=== PATIENT | female | born 1965 | race Caucasian/White ===

== ENCOUNTER 2016-11-06 08:22 | Emergency (ER) | payer OTHER ==
[~2016-11-06] VITALS: Ht 162.6 cm; Wt 79.4 kg
[2016-11-06 09:13] LABS: URINE BILIRUBIN NEGATIVE (Negative); URINE BLOOD NEGATIVE (Negative); URINE COLOR YELLOW; URINE GLUCOSE-RANDOM* NEGATIVE (Negative); URINE KETONES NEGATIVE (Negative); URINE NITRITE NEGATIVE (Negative); URINE PROTEIN (DIPSTICK) NEGATIVE (Negative); URINE SPECIFIC GRAVITY 1.015 (1.003-1.035); URINE UROBILINOGEN 0.2 E.U./dl (0.2-1.0)
[2016-11-06 09:15] LABS: BASOPHILS 0.7 % (0.0-2.0); EOSINOPHILS 2.1 % (0.0-3.0); HEMATOCRIT 29.7 % (37.0-47.0); HEMOGLOBIN 9.2 gm/dL (12.0-15.0); LYMPHOCYTES 33.3 % (24.0-44.0); MCH 22.5 pg (26.0-34.0); MCHC 31.1 g/dL (28.0-37.0); MCV 72.5 fL (80.0-100.0); MONOCYTES 8.8 % (1.0-8.0); PLATELET COUNT 293 thou/uL (150-400); POLYS 55.1 % (36.0-66.0); RBC 4.09 mil/uL (4.20-5.00); RDW 17.8 % (10.5-14.5); WBC 7.2 thou/uL (4.0-11.0)
[2016-11-06 09:16] LABS: MANUAL DIFF NO
[2016-11-06 09:22] LABS: CALCIUM 8.5 mg/dL (8.5-10.1); CREATININE 0.7 mg/dL (0.6-1.0)
[2016-11-06 09:24] VITALS: BP 107/61
[2016-11-06] MEDS ORDERED: IRON325 PO (09:42)
[2016-11-06 10:21] LABS: ANISOCYTOSIS 2+; HYPOCHROMASIA 2+; PLATELET ESTIMATE NORMAL
[2016-11-06 10:22] LABS: MICROCYTES 2+; POLYCHROMASIA 1+
== END 2016-11-06 09:43 | disposition home or self-care (01) ==
LOC: ER 08:22
PROVIDERS: Emergency Medicine
DX: R25.2 Cramp and spasm (principal); D50.9 Iron deficiency anemia, unspecified; F50.89 Other specified eating disorder; F17.210 Nicotine dependence, cigarettes, uncomplicated; F10.99 Alcohol use, unspecified with unspecified alcohol-induced disorder; F12.10 Cannabis abuse, uncomplicated; Z88.0 Allergy status to penicillin

== ENCOUNTER 2019-09-28 00:22 | Emergency (ER) | payer OTHER ==
[~2019-09-28] VITALS: Ht 162.6 cm; Wt 90.7 kg
[~2019-09-28 00:22] MED LIST: IRON325 PO
[2019-09-28] MEDS ORDERED: CIPRO HC OTIC S10 ML OTIC ×2 (01:06→01:36)
[2019-09-28 01:42] VITALS: BP 101/71
== END 2019-09-28 01:42 | disposition home or self-care (01) ==
LOC: ER 00:22
DX: H60.93 Unspecified otitis externa, bilateral (principal); F17.210 Nicotine dependence, cigarettes, uncomplicated; Z88.0 Allergy status to penicillin

== ENCOUNTER 2020-05-12 23:32 | Emergency (ER) | payer OTHER ==
[~2020-05-12] VITALS: Ht 172.7 cm; Wt 81.7 kg
[~2020-05-12 23:32] MED LIST changes: +CIPRO HC OTIC S10 ML OTIC
[2020-05-13 00:46] LABS: BASOPHILS 0.2 % (0.0-2.0)
[2020-05-13 00:48] LABS: URINE BILIRUBIN NEGATIVE (Negative); URINE BLOOD NEGATIVE (Negative); URINE CLARITY CLEAR; URINE COLOR YELLOW; URINE GLUCOSE-RANDOM* NEGATIVE (Negative); URINE KETONES NEGATIVE (Negative); URINE LEUKOCYTES-REFLEX TRACE (Negative); URINE NITRITE-REFLEX NEGATIVE (Negative); URINE PROTEIN (DIPSTICK) NEGATIVE (Negative); URINE SPECIFIC GRAVITY 1.015 (1.005-1.035)
[2020-05-13 00:48] LABS: ABSOLUTE NEUTROPHILS 6.3 thou/uL (1.4-8.2); HEMATOCRIT 32.7 % (37.0-47.0); HEMOGLOBIN 10.7 gm/dL (12.0-15.0); LYMPHOCYTES 24.1 % (24.0-44.0); MCH 31.9 pg (26.0-34.0); MCHC 32.7 g/dL (28.0-37.0); MCV 97.7 fL (80.0-100.0); MONOCYTES 1.5 % (1.0-8.0); PLATELET COUNT 215 thou/uL (150-400); POLYS 74.2 % (36.0-66.0); RBC 3.35 mil/uL (4.20-5.00); RDW 16.3 % (10.5-14.5); WBC 8.5 thou/uL (4.0-11.0)
[2020-05-13 00:50] LABS: CALCIUM 6.9 mg/dL (8.5-10.1); CREATININE 1.7 mg/dL (0.6-1.0)
[2020-05-13 00:51] LABS: POTASSIUM 4.1 mmol/L (3.5-5.1)
[2020-05-13] MEDS ORDERED: PEPCID20 MG PO (00:52)
[2020-05-13] MEDS ORDERED: ELIQUIS5 MG PO (00:52)
[2020-05-13] MEDS ORDERED: OXYCODONE HCL10 MG PO (00:53)
[2020-05-13] MEDS ORDERED: ACETAMINOPHEN650 MG RECTAL (00:53)
[2020-05-13] MEDS ORDERED: HYOSCYAMINE0.125 M1 SUBLING (00:54)
[2020-05-13] MEDS ORDERED: HALOPERIDOL2 MG/1 ML PO (00:54)
[2020-05-13] MEDS ORDERED: BISACODYL10 MG RECTAL (00:54)
[2020-05-13] MEDS ORDERED: FERROUS SULFAT325 MG PO (00:54)
[2020-05-13] MEDS ORDERED: MORPHINE S100 MG/5 M PO (00:55)
[2020-05-13] MEDS ORDERED: LORAZEPAM 0.50.5 MG PO (00:55)
[2020-05-13 00:56] LABS: ALBUMIN 1.3 g/dL (3.4-5.0); TOTAL PROTEIN 4.2 g/dL (6.4-8.2)
[2020-05-13] MEDS ORDERED: SENNA-S TABLET1 EACH PO (00:56)
[2020-05-13] MEDS ORDERED: VITAMIN D325 MC1 PO (00:56)
[2020-05-13] MEDS ORDERED: ONDANSETRON HCL8 MG PO (00:56)
[2020-05-13 01:21] LABS: ANISOCYTOSIS 1+; POLYCHROMASIA 1+
[2020-05-13 02:09] VITALS: BP 157/80
[2020-05-13 02:30] VITALS: BP 99/14
== END 2020-05-13 03:20 ==
LOC: ER 23:32 → EROBS 05-13 01:32 → ER 05-13 03:20
PROVIDERS: Emergency Medicine
DX: C50.919 Malignant neoplasm of unspecified site of unspecified female breast (principal); Z20.828 Contact with and (suspected) exposure to other viral communicable diseases; E87.1 Hypo-osmolality and hyponatremia; K56.690 Other partial intestinal obstruction; R41.0 Disorientation, unspecified; F17.210 Nicotine dependence, cigarettes, uncomplicated; Z88.0 Allergy status to penicillin; Z79.899 Other long term (current) drug therapy